=== PATIENT | female | born 1955 | race Caucasian/White ===

== ENCOUNTER → 2016-05-22 | Outpatient (CLI) | payer BC ==
--- NOTE | 2016-05-23 15:04 | HM ---
Date Performed: 05/22/2016 Time Performed: 08:57:00 HOOKUP DATE: 05/22/16 08:57:00 AM Tue ANALYSIS START TIME: 05/22/2016 9:02:00 AM ANALYSIS END TIME: 05/23/2016 9:05:59 AM PATIENT AGE: 61 PATIENT HEIGHT PATIENT WEIGHT DRUG LIST PATIENT DIAGNOSIS: tachycardia TEST NARRATIVE: The patient's average heart rate was 79 BPM. No episodes of tachycardia wer e noted. No episodes of bradycardia were noted. No pauses exceeding 2.0 seconds were noted. 2 ventricular ectopics, which represented < 1% of the total beat count, were noted. The highest vent ricular ectopic frequency occurred from 11:00 AM to 12:00 PM Tue. During this time 1 VE(s) occurred. Ventricular ectopics were observed as 2 isolated beat(s) only. No couplets or runs were noted. No supraventricular ectopics were noted. No episodes of ST depression (defined as -1.0 mm or mor e) were noted in channel 1. No episodes of ST depression (defined as -1.0 mm or more) were noted in channel 2. No episodes of ST depression (defined as -1.0 mm or more) were noted in channel 3. TEST INTERPRETATION: No symptoms are documented. No significant pauses are present. The underl charlie rhythm is Sinus rhythm with average rate 79 beats per minute and range of 54-108 beats per minute. No atrial ectopy is see n. Extremely rare premature ventricular contractions are seen. Signed by : Ramesh Cassidy
== END ==
LOC: HCAV 08:41
PROVIDERS: ATTEND Family Medicine
DX: R00.0 Tachycardia, unspecified (principal)
CPT/HCPCS: 93225; 93226

== ENCOUNTER → 2016-11-26 | Outpatient (CLI) | payer BC ==
--- NOTE | 2016-11-26 14:56 | TR ---
Date Performed: 11/26/2016 Time Performed: 13:05:13 DOCTOR: Archie Lawson DRUG LIST: CLINICAL HISTORY: REASON FOR TEST: REASON FOR ENDING: OBSERVATION: CONCLUSION: DORIAN PROTOCOL. NO CP. TEST STOPPED WHEN MAXIMUM HEART RATE REACHED SECONDARY TO SHERMAN RTNESS OF BREATH AND LEG FATIGUE. Maximum LO=242 % Max HR Achieved=88.0% Maximum XI=280/68 METs Achie aundrea=7.0 Total Exercise Time=4:01 COMMENTS: Patient exercised using the Dorian protocol. No electrocardiographic changes were seen to suggest ischemia. Hemodynamic response to exercise was normal. No significant arrhythmia was prese nt.
== END ==
LOC: HCAV 12:08
PROVIDERS: ATTEND Family Medicine
DX: R07.89 Other chest pain (principal)
CPT/HCPCS: 93017